=== PATIENT | female | born 2000 | race Caucasian/White ===

== ENCOUNTER 2023-07-27 14:42 | Emergency (ER) | payer SELFPAY ==
[2023-07-27 14:59] VITALS: BP 139/74
[2023-07-27 15:27] LABS: % Basophils 0.2 % (0-2); % Eosinophils 0.2 % (0-6); % Immature Granulocytes 0.4 % (0-0.5); % Lymphocytes 19.5 % (20.5-51.1); % Monocytes 6.1 % (1.7-9.3); % Neutrophils 73.6 % (42.2-75.2); Absolute Lymphocytes 1.9 10^3/uL (1.2-3.4); Absolute Monocytes 0.6 10^3/uL (0.1-0.6); Hematocrit 38.1 % (37.0-47.0); Hemoglobin 13.3 g/dL (12.0-16.0); Mean Corp Hgb Conc. 34.9 g/dL (33.0-37.0); Mean Corpuscular Hgb 31.4 pg (27.0-31.0); Mean Corpuscular Volume 89.9 fL (81.0-99.0); Mean Platelet Volume 9.7 fL (7.4-10.4); Nucleated Red Blood Cells % 0 %; Platelet Count 303 10^3/uL (130-400); Red Blood Cell Count 4.24 10^6/uL (4.20-5.40); Red Cell Dist. Width 11.9 % (11.5-14.5); White Blood Cell Count 9.5 10^3/uL (4.8-10.8)
[2023-07-27 15:37] LABS: ALT (SGPT) 17 U/L (0-35); AST (SGOT) 25 U/L (14-36); Albumin 4.9 g/dl (3.5-5.0); Alkaline Phosphatase 60 U/L (38-126); Blood Urea Nitrogen 15 mg/dl (7-17); Calcium 9.8 mg/dl (8.4-10.2); Carbon Dioxide 28 mmol/L (22-30); Chloride 104 mmol/L (98-107); Glucose 93 mg/dl (70-99); Potassium 4.7 mmol/L (3.5-5.1); Sodium 137 mmol/L (135-145); Total Bilirubin 1.8 mg/dl (0.2-1.3); Total Protein 8.4 g/dl (6.3-8.2); eGFR > 60.00
[2023-07-27 15:49] VITALS: BMI 26.3
[2023-07-27 15:50] VITALS: BP 113/80
--- NOTE | 2023-07-27 15:53 | ED.GENMED ---
History of Present Illness
General
Chief Complaint: Headache
Source: patient
Exam Limitations: none
Time Seen by Provider: 07/27/23 15:38
Travel History
Have you had any contact with someone who has COVID-19?: No
Do you have any symptoms of coronavirus? Fever > 100 degrees, chills, cough, shortness of breath, sore throat, loss of taste or smell, muscle aches, or headache?: No
History of Present Illness
History of Present Illness:
23-year-old female with history of acne on spironolactone presents with 2 to 3 days worth of worsening right-sided headache with associated blurry vision out of the right eye. She states at times she sees spots or flashes of light. No unilateral
numbness or weakness. No slurred speech. No fever. No injury. No prior history of migraines. She is photosensitive but denies any nausea. No other complaints at this time
Phy Exam
Physical Exam
Physical Exam:
General: Well-appearing female no acute respiratory distress
HEENT: Normocephalic atraumatic
Heart: Regular rate and rhythm no murmurs
Lungs: Clear to auscultation bilaterally no wheezing
Neurologic exam: Alert and oriented x 3 no facial asymmetry. 6 negative Tinel's over the temporal artery on the right. No slurred speech. Good strength to the upper and lower extremities. Normal gait
Musculoskeletal exam: Cervical spine nontender to palpation
Course
Orders/Labs/Results
Orders:
Orders
07/27/23 15:14
CMP [Comprehensive Metabolic Panel] Urgent
Complete Blood Count/With Diff Urgent
Erythrocyte Sed Rate Urgent
Comment: ADD-ON
HCG, Serum Qualitative Screen Urgent
Comment: ADD-ON
07/27/23 15:46
Add On- LAB Urgent
Tests Added?: sed rate, hcg
CT Head W/o Iv Contrast Urgent
Comment:
Reason For Exam: headcahe
Abnormal Lab Results
07/27/23
15:14
MCH 31.4 H pg
(27.0-31.0)
Absolute Neuts (auto) 7.0 H 10^3/uL
(1.4-6.5)
Lymphocytes % 19.5 L %
(20.5-51.1)
Total Bilirubin 1.8 H mg/dl
(0.2-1.3)
Total Protein 8.4 H g/dl
(6.3-8.2)
07/27/23 15:14
07/27/23 15:14
Vital Signs
Initial and Last Documented VS:
Initial Vital Signs
Temp Pulse Resp BP Pulse Ox
98.0 F 88 16 139/74 99
07/27/23 14:59 07/27/23 14:59 07/27/23 14:59 07/27/23 14:59 07/27/23 14:59
Last Documented Vital Signs
Temp Pulse Resp BP Pulse Ox
98.0 F 79 18 113/80 98
07/27/23 14:59 07/27/23 15:50 07/27/23 15:50 07/27/23 15:50 07/27/23 15:50
MDM/Problems Addressed
Differential Diagnosis Includes:
Right-sided headache with right eye vision change. Question possible migraine versus temporal arteritis. No fever to suggest infectious source. Headache is gradual in onset she does not describe sudden onset severe at its onset headache. Do not
suspect subarachnoid hemorrhage but CT of the head is pending
Will check sed rate.
*Critical Care Note
Total Time (30-74mins, 75-104mins- exclusive of procedures): Not Applicable
Update Note
Update Note:
CT of the head negative. Right eye reexamined with fluorescein stain and Ortiz lamp. There is no stain uptake to suggest ulcer or abrasion or foreign body. The pressures were checked as well right eye pressure measured on average 16 mmHg as did
the left eye.
No proptosis no pain with motion significantly. Suspect underlying atypical migraine recommended Tylenol or Excedrin. Did refer to avionics manager for completion. Stable for discharge. No skin changes to suggest infection.
ED Attending Note
-
Portions of this chart may have been created with voice recognition software.� Occasional wrong word or��sound alike� substitutions may have occurred due to the inherent limitations of voice recognition software.
Discharge Plan
Departure
Patient Disposition: Home (Routine Discharge)
Date of Disposition: 07/27/23
Time of Disposition: 19:16
Patient with high blood pressure during this ER visit?: No
Discharge Problem:
Headache
Instructions: Headache, Adult (DC)
Referrals:
Mary Kate Mckeon DO [Family Provider] -
Samuel Roman MD [Active] -
Activity Restrictions/Additional Instructions:
Use Tylenol or Excedrin for your headache. Please return if worse otherwise follow-up with ophthalmology
Interventions
Interventions:
*Risk Screen - Suicide Last Done: 07/27/23 14:59
*General Assessment Last Done: 07/27/23 15:49
*Neglect/Abuse Screening Last Done: 07/27/23 14:59
*ED COVID-19 Vaccine History Last Done: 07/27/23 14:59
ED-EENT Assessment Last Done: 07/27/23 16:42
ED- Neurological Assessment Last Done: 07/27/23 16:42
[2023-07-27 15:59] LABS: HCG, Serum Qualitative Screen Negative
[2023-07-27 16:06] LABS: Erythrocyte Sed Rate 17 mm/hour (0-20)
== END 2023-07-27 19:25 | disposition home or self-care (01) ==
LOC: EMR 14:42
PROVIDERS: EMERGENCY PHYSICIAN Emergency Medicine; FAMILY PHYSICIAN Internal Medicine
DX: R51.9 Headache, unspecified (principal)
CPT/HCPCS: 99284; 70450; 80053; 84703; 85025; 85652